=== PATIENT | female | born 1945 | race Caucasian/White ===

== ENCOUNTER → 2017-08-03 19:46 | Outpatient (REF) | payer MEDICARE, OTHER, SELFPAY | LOC: LAB 19:46 | PROVIDERS: Family Provider Family Medicine; PCP Family Medicine; Visit Provider Dermatology | DX: Z48.817 Encounter for surgical aftercare following surgery on the skin and subcutaneous tissue (principal) | CPT/HCPCS: 87070; 87075; 87186; 87205 ==

== ENCOUNTER → 2017-10-12 11:49 | Outpatient (CLI) | payer MEDICARE, OTHER, SELFPAY ==
[2017-10-12 11:58] LABS: Bacteria Urine None Seen; RBC Urine None Seen (0-5/HPF)
[2017-10-12 13:09] LABS: Appearance Urine UA CLEAR; Bilirubin Urine UA NEGATIVE (NEGATIVE); Color Urine UA YELLOW; Glucose Urine UA NEGATIVE (Normal); Ketones Urine UA 1+ (NEGATIVE); Leukocyte Esterase Urine UA NEGATIVE (NEGATIVE); Nitrite Urine UA Negative (Negative); Occult Blood Urine UA NEGATIVE (Negative); Protein Urine UA NEGATIVE (Negative); Urobilinogen Urine UA 0.2 E.U./dL (0.2)
[2017-10-12 13:47] LABS: Culture Indicated Urine Cult Not Indicated; Squamous Epithelial Cell Urine 1-5 /HPF; WBC Urine 0-1/HPF (0-5/HPF)
== END ==
PROVIDERS: PCP Internal Medicine; Visit Provider Internal Medicine
DX: I10 Essential (primary) hypertension (principal)
CPT/HCPCS: 81001

== ENCOUNTER → 2017-10-26 09:13 | Outpatient (CLI) | payer MEDICARE, OTHER, SELFPAY ==
--- NOTE | 2017-10-26 09:14 | DI.ECHO.S_ITS ---
[facility] +---------+ : : [address] [address] : : : : [id number] : : : : Phone: [phone]+ Echocardiogram Report + + :Name: SAMUEL HINTON Study Date: 10/26/2017 Height: 69 in : :[facility] Exam Location: [facility] Weight: 140 lb : : Gender: Female BSA: 1.8 m2 : :: 1945 Age: 72 yrs BP: 128/78 mmHg: :Reason For Study: ABNL EKG : : Performed By: Duane Andres : :Referring: DAJA BEST : + + Interpretation Summary The ejection fraction is estimated to be 60-65%. There is trace mitral regurgitation. There is mild to moderate tricuspid regurgitation. The right ventricular systolic pressure is estimated at 27 mmHg assuming a right atrial pressure of 3 mm Hg. Procedure: A two-dimensional transthoracic echocardiogram with color flow and Doppler was performed. The study quality was technically good. There is no prior echocardiogram noted for this patient. The patient was in normal sinus rhythm during the exam. Left Ventricle: The left ventricle is normal in size. There is normal left ventricular wall thickness. The ejection fraction is estimated to be 60-65%. There are no focal wall motion abnormalities. Right Ventricle: The right ventricle is normal in size and function. Atria: The left atrial size is normal. The right atrium is mildly dilated. The interatrial septum is intact with no evidence for an atrial septal defect. Mitral Valve: The mitral valve is normal in structure and function. There is trace mitral regurgitation. Aortic Valve: The aortic valve is normal in structure and function. The aortic valve is trileaflet. The aortic valve opens well. No aortic regurgitation is present. Tricuspid Valve: The tricuspid valve is normal in structure and function. There is mild to moderate tricuspid regurgitation. The right ventricular systolic pressure is estimated at 27 mmHg assuming a right atrial pressure of 3 mm Hg. Pulmonic Valve: The pulmonic valve is normal in structure and function. There is trace pulmonic regurgitation. Great Vessels: The aortic root is normal size. The ascending aorta is mildly enlarged. The pulmonary artery is normal size. The IVC is of normal diameter and collapses greater than 50% with a sniff. This suggests a low right atrial pressure of 3 mm Hg. Pericardium/ Pleura There is no pericardial effusion. There is no pleural effusion. MMode/2D Measurements & Calculations LVIDd: 4.6 cm Ao root diam: 2.8 cm LVIDs: 2.5 cm Aortic Jxn: 2.6 cm FS: 46.4 % asc Aorta Diam: 3.5 cm EPSS: 0.24 cm Ao Arch Diam (Prox Trans): 2.8 cm IVSd: 0.81 cm LVPWd: 0.72 cm LV rocha. diameter/BSA (cm/m^2): 2.6 LV sys. diameter/BSA (cm/m^2): 1.4 LA dimension: 3.2 cm RA long axis: 4.8 cm LA A2 area: 19.4 cm2 RA area: 18.1 cm2 LA A4 area: 19.8 cm2 RA vol: 58.1 ml LA length (vol): 5.8 cm RA : 32.7 ml/m2 LA vol: 56.4 ml IVC diam: 1.7 cm LA vol index: 31.8 ml/m2 Doppler Measurements & Calculations Ao V2 max: 132.3 cm/sec LVOT Max Gordon: 110.0 cm/sec Ao V2 mean: 98.1 cm/sec LV V1 max P.8 mmHg Ao max P.0 mmHg LV V1 VTI: 25.4 cm Ao mean P.1 mmHg sev ratio: 0.81 Ao V2 VTI: 31.2 cm MV E max gordon: 53.9 cm/sec TR max gordon: 245.8 cm/sec MV A max gordon: 80.4 cm/sec TR max P.2 mmHg MV E/A: 0.67 PA V2 max: 96.3 cm/sec Med Peak E' Gordon: 2.8 cm/sec PA V2 mean: 60.8 cm/sec E/E' med: 19.4 PA mean P.7 mmHg Lat Peak E' Gordon: 4.5 cm/sec PA pr(Accel): 32.4 mmHg E/E' lat: 11.9 PA Accel Time: 0.10 sec E/e' average: 15.6 MV dec time: 0.20 sec Pulm A Revs Gordon: 45.8 cm/sec Reading Physician:05:31 PM
== END ==
PROVIDERS: PCP Internal Medicine; Visit Provider Internal Medicine
DX: I07.1 Rheumatic tricuspid insufficiency (principal); R94.31 Abnormal electrocardiogram [ECG] [EKG]
CPT/HCPCS: 93306

== ENCOUNTER → 2017-11-11 07:34 | Outpatient (CLI) | payer MEDICARE, OTHER, SELFPAY ==
[2017-11-11 09:35] LABS: Alanine Aminotransferase 26 IU/L (9-52); Albumin 4.3 g/dL (3.5-5.0); Albumin Globulin Ratio 1.4 (1.0-2.8); Alkaline Phosphatase 100 U/L (38-126); Aspartate Aminotransferase 34 IU/L (14-36); Bilirubin Total 0.7 mg/dL (0.2-1.3); Blood Urea Nitrogen 18 mg/dL (7-17); Calcium 9.5 mg/dL (8.4-10.2); Carbon Dioxide 32 mmol/L (22-32); Chloride 104 mmol/L (98-107); Cholesterol 250 mg/dL (140-199); Estimated Glomerular Filt Rate 54.7 mL/min (>60); Glucose 79 mg/dL (80-110); HDL Cholesterol 109 mg/dL (40-60); HEMOLYSIS < 15 (0-50); LDL Cholesterol Calculated 127 mg/dL (<100); Potassium 4.2 mmol/L (3.4-5.1); Sodium 144 mmol/L (137-145); Total Protein 7.3 g/dL (6.3-8.2); Triglycerides 72 mg/dL (35-150)
== END ==
PROVIDERS: PCP Internal Medicine; Visit Provider Internal Medicine
DX: E78.00 Pure hypercholesterolemia, unspecified (principal); I10 Essential (primary) hypertension
CPT/HCPCS: 36415; 80053; 80061

== ENCOUNTER → 2018-08-09 07:57 | Outpatient (CLI) | payer MEDICARE, OTHER, SELFPAY ==
[2018-08-09 09:26] LABS: Blood Urea Nitrogen 22 mg/dL (7-17); Calcium 9.7 mg/dL (8.4-10.2); Carbon Dioxide 32 mmol/L (22-32); Chloride 103 mmol/L (98-107); Cholesterol 318 mg/dL (140-199); Estimated Glomerular Filt Rate 54.5 mL/min (>60); Glucose 77 mg/dL (80-110); HEMOLYSIS < 15 (0-50); Potassium 4.5 mmol/L (3.4-5.1); Sodium 141 mmol/L (137-145); Triglycerides 69 mg/dL (35-150)
[2018-08-09 09:33] LABS: HDL Cholesterol 155 mg/dL (40-60); LDL Cholesterol Calculated 149 mg/dL (<100)
[2018-08-11 16:21] LABS: Fecal Immunochemical Test NOT DETECTED (NOT DETECTED)
== END ==
PROVIDERS: Visit Provider Student in an Organized Health Care Education/Training Program
DX: E78.00 Pure hypercholesterolemia, unspecified (principal); I10 Essential (primary) hypertension; Z12.11 Encounter for screening for malignant neoplasm of colon
CPT/HCPCS: 36415; 80048; 80061; 82274

== ENCOUNTER → 2018-08-12 14:45 | Outpatient (CLI) | payer MEDICARE, OTHER, SELFPAY | PROVIDERS: Visit Provider Student in an Organized Health Care Education/Training Program | DX: Z13.820 Encounter for screening for osteoporosis (principal); M85.88 Other specified disorders of bone density and structure, other site; Z78.0 Asymptomatic menopausal state; Z82.62 Family history of osteoporosis | CPT/HCPCS: 77080 ==

== ENCOUNTER → 2019-01-18 07:05 | Outpatient (CLI) | payer MEDICARE, OTHER, SELFPAY ==
[2019-01-18 09:11] LABS: Alanine Aminotransferase 19 IU/L (<35); Albumin 4.4 g/dL (3.5-5.0); Albumin Globulin Ratio 1.5 (1.0-2.8); Alkaline Phosphatase 82 U/L (38-126); Aspartate Aminotransferase 32 IU/L (14-36); Bilirubin Total 0.7 mg/dL (0.2-1.3); Bilirubin Unconjugated 0.6 mg/dL (0.0-1.1); Cholesterol 286 mg/dL (140-199); Total Protein 7.4 g/dL (6.3-8.2); Triglycerides 58 mg/dL (35-150)
[2019-01-18 09:17] LABS: HEMOLYSIS < 15 (0-50)
[2019-01-18 09:18] LABS: HDL Cholesterol 131 mg/dL (40-60); LDL Cholesterol Calculated 143 mg/dL (<100)
== END ==
PROVIDERS: PCP Student in an Organized Health Care Education/Training Program; Visit Provider Student in an Organized Health Care Education/Training Program
DX: E78.00 Pure hypercholesterolemia, unspecified (principal); Z79.899 Other long term (current) drug therapy
CPT/HCPCS: 36415; 80061; 80076

== ENCOUNTER → 2019-07-25 16:39 | Outpatient (CLI) | payer MEDICARE, OTHER, SELFPAY ==
--- NOTE | 2019-07-25 16:40 | DI.MRI.S_ITS ---
PROCEDURE: MR KNEE RT WO CON INDICATIONS: Right knee pain TECHNIQUE: Noncontrast sagittal PD fast spin echo and T2 fast spin echo with fat saturation, sagittal 3-D FLASH with fat saturation; coronal T1 spin echo and PD fast spin echo with fat saturation, and axial PD fast spin echo with fat saturation through the knee. COMPARISON: None. FINDINGS: Image quality: Excellent. Menisci: The medial and lateral menisci demonstrate normal morphology without a discrete tear. There is minimal internal degenerative signal within the medial and lateral menisci. The meniscal root ligaments appear intact. Cruciate ligaments: The anterior and posterior cruciate ligaments appear intact. There is mild periligamentous edema along the ACL proximally as well as mild adjacent edema along the posterior capsule. The findings may represent sequelae of a mild sprain. Medial structures: The medial collateral ligament appears intact. The semimembranosus tendon insertions and meniscocapsular junction appear intact. Visualized portions of the pes anserinus tendons appear intact without associated bursal fluid collections. Lateral structures: The lateral collateral ligament, long and short heads of the biceps femoris tendon appear intact. The popliteus tendon appears intact. Iliotibial band appears normal. Anterior structures: The quadriceps and patellar tendons appear intact. There is slight lateral tilt of the patella. No femoral trochlear dysplasia or ventral trochlear prominence. No edema in the infrapatellar fat pad. Bones and cartilage: No bone marrow contusions or fractures. There is minimal osteophytosis. Moderate cartilage thinning is demonstrated in the patellofemoral compartment with chondral fissuring associated with subchondral edema along the patella involving the medial and lateral facets as well as the median ridge. There is mild superficial chondral fraying in the medial compartment. Joint space: There is physiologic knee joint fluid. There is a small Alfaro's cyst. Normal appearing synovial plicae are incidentally noted. IMPRESSION: 1. Moderate cartilage degeneration in the patellofemoral compartment with subchondral edema along the patella. 2. Mild edema adjacent to the proximal ACL and posterior joint capsule may reflect sequela of a mild sprain. 3. Small Alfaro's cyst. Dictated by: Kendall Vázquez M.D. on 07/26/2019 at 10:02 Approved by: Kendall Vázquez M.D. on 07/26/2019 at 10:10
== END ==
PROVIDERS: PCP Student in an Organized Health Care Education/Training Program; Referring Provider Student in an Organized Health Care Education/Training Program; Visit Provider Student in an Organized Health Care Education/Training Program
DX: M25.561 Pain in right knee (principal); M71.21 Synovial cyst of popliteal space [Baker], right knee
CPT/HCPCS: 73721

== ENCOUNTER → 2019-09-01 11:02 | Outpatient (CLI) | payer MEDICARE, OTHER, SELFPAY ==
--- NOTE | 2019-09-01 11:03 | DI.MG.S_ITS ---
BILATERAL DIGITAL SCREENING MAMMOGRAM 3D/2D WITH CAD: 09/01/2019 CLINICAL: Routine screening. Family history of breast cancer. Comparison is made to exams dated: 05/08/2017 mammogram, 03/28/2016 mammogram, and 03/04/2013 mammogram - [facility]. The tissue of both breasts is extremely dense, which lowers the sensitivity of mammography. Current study was also evaluated with a Computer Aided Detection (CAD) system. There is an asymmetry in the left breast posterior depth central to the nipple seen on the craniocaudal view only. No other significant masses, calcifications, or other findings are seen in either breast. IMPRESSION: INCOMPLETE: NEEDS ADDITIONAL IMAGING EVALUATION The asymmetry in the left breast is indeterminate. Additional views with possible ultrasound are recommended. This exam was interpreted at Station ID: [id number]. NOTE: For mammograms, a report in lay terms will be sent to the patient. Approximately 15% of breast malignancies will not be visualized mammographically. In the management of a palpable breast mass, a negative mammogram must not discourage biopsy of a clinically suspicious lesion. Electronically Signed By: Sandrine sparrow/cristian:09/01/2019 11:35:37 letter sent: Additional Imaging Needed ACR BI-RADS Category 0: Incomplete 3340F
== END ==
PROVIDERS: PCP Student in an Organized Health Care Education/Training Program; Referring Provider Student in an Organized Health Care Education/Training Program; Visit Provider Student in an Organized Health Care Education/Training Program
DX: Z12.31 Encounter for screening mammogram for malignant neoplasm of breast (principal); Z80.3 Family history of malignant neoplasm of breast
CPT/HCPCS: 77063; 77067

== ENCOUNTER → 2019-09-20 15:01 | Outpatient (CLI) | payer MEDICARE, OTHER, SELFPAY ==
--- NOTE | 2019-09-20 15:03 | DI.MG.S_ITS ---
UNILATERAL LEFT DIGITAL DIAGNOSTIC MAMMOGRAM 3D/2D WITH ADDITIONAL VIEWS: 09/20/2019 CLINICAL: Additional evaluation requested from prior study. Comparison is made to exams dated: 09/01/2019 mammogram, 05/08/2017 mammogram, and 03/28/2016 mammogram - [facility]. The tissue of left breast is extremely dense, which lowers the sensitivity of mammography. The previously seen asymmetry in the left breast seen on craniocaudal view only is no longer visualized and presumably represents normal superimposed breast tissue. No significant masses, calcifications, or other findings are seen in the breast. IMPRESSION: NEGATIVE There is no mammographic evidence of malignancy. A 1 year screening mammogram is recommended. This exam was interpreted at Station ID: [id number]. NOTE: For mammograms, a report in lay terms will be sent to the patient. Approximately 15% of breast malignancies will not be visualized mammographically. In the management of a palpable breast mass, a negative mammogram must not discourage biopsy of a clinically suspicious lesion. Electronically Signed By: Amrit burch/cristian:09/20/2019 15:57:50 letter sent: Normal Exam ACR BI-RADS Category 1: Negative 3341F
== END ==
PROVIDERS: PCP Student in an Organized Health Care Education/Training Program; Referring Provider Student in an Organized Health Care Education/Training Program; Visit Provider Student in an Organized Health Care Education/Training Program
DX: R92.8 Other abnormal and inconclusive findings on diagnostic imaging of breast (principal)
CPT/HCPCS: 77065; G0279

== ENCOUNTER → 2020-06-13 10:01 | Outpatient (CLI) | payer MEDICARE, OTHER, SELFPAY ==
[2020-06-13 10:45] LABS: BUN Creatinine Ratio 16.3 (6-22); Blood Urea Nitrogen 16 mg/dL (7-17); Calcium 9.7 mg/dL (8.4-10.2); Carbon Dioxide 28 mmol/L (22-32); Chloride 103 mmol/L (98-107); Estimated Glomerular Filt Rate 55.5 mL/min (>60); Glucose 83 mg/dL (80-110); HEMOLYSIS < 15 (0-50); Potassium 4.4 mmol/L (3.4-5.1); Sodium 137 mmol/L (137-145)
== END ==
PROVIDERS: PCP Student in an Organized Health Care Education/Training Program; Referring Provider Student in an Organized Health Care Education/Training Program; Visit Provider Student in an Organized Health Care Education/Training Program
DX: I10 Essential (primary) hypertension (principal)
CPT/HCPCS: 36415; 80048

== ENCOUNTER → 2020-06-20 08:11 | Outpatient (CLI) | payer MEDICARE, OTHER, SELFPAY ==
--- NOTE | 2020-06-20 08:12 | DI.RAD.S_ITS ---
PROCEDURE: FL BARIUM SWALLOW W SPEECH INDICATIONS: Dysphagia with solids COMPARISON: None. TECHNIQUE: Examination was conducted in conjunction with speech pathology per standard protocol. In the lateral projection, filming was performed of the patient swallowing. AP projection filming may also be performed with patient swallowing. COMPARISON: FINDINGS: Function: The oral preparatory phase appears normal, with proper containment. The subsequent oral propulsive phase, pharyngeal phase, and esophageal phase of swallowing also appear normal with all proffered substances. No laryngotracheal penetration or aspiration. No pathologic vallecular pooling. Morphology: No cricopharyngeal bar is identified. No cervical esophageal webs. Large Zenker's diverticulum is noted. No strictures. IMPRESSION: Large Zenker's diverticulum. Dictated by: Mika Villatoro M.D. on 06/20/2020 at 10:54 Approved by: Mika Villatoro M.D. on 06/20/2020 at 10:55
--- NOTE | 2020-06-20 10:15 | ST.SWALLOW ---
Visit Care Team Role Provider Type Pawan Pena MD Attending Provider Physician Primary Care Provider Referring Provider Specialty: Internal Medicine Address: [address] [place] [address], [address], [address] Email: [email or web address] Modified Barium Swallow Study DIRECTOR [employer] Modified Barium Swallow Study Start: 06/20/20 09:27 Freq: Status: Active Protocol: Document 06/20/20 09:27 TLC (Rec: 06/20/20 10:15 TLC [id number]) Modified Barium Swallow Study Total Time Visit Start Time 08:30 Visit Stop Time 08:45 Total Visit Minutes [address] Pawan Pena Reason for Referral Globus sensation, Dysphagia with solids Setting Setting Outpatient Care Patient Information Identification Type Name Patient History Patient reports symptoms of globus sensation with solid foods and pills for the last several months. She is concerned about an esophageal stricture which her brother has. Subjective Observations Patient was alert, oriented and cooperative during the study. Patient Positioning Position View Lateral Imaging Lateral View Textures Administered Trials Presented Thin Liquid via Spoon,Thin Liquid via Cup,[place] Liquid via Spoon,[place] Liquid via Cup,Honey Liquid via Spoon, Pudding Thick Liquid via Spoon ,Regular Textures Oral Phase Source: MBSIMP (TM) (C) Bolus Specific Scoring Grid Lip Closure No Impairment (WNL) Tongue Control During Bolus Hold No Impairment (WNL) Bolus Prep/Mastication No Impairment (WNL) Bolus Transport/Lingual Motion No Impairment (WNL) Oral Residue No Impairment (WNL) Additional Oral Phase Observations No oral phase dysphagia observed. Pharyngeal Phase Source: MBSIMP (TM) (C) Bolus Specific Scoring Grid Soft Palate Elevation No Impairment (WNL) Laryngeal Elevation No Impairment (WNL) Anterior Hyoid Movement No Impairment (WNL) Epiglottic Range of Motion No Impairment (WNL) Laryngeal Vestibular Closure No Impairment (WNL) Pharyngeal Stripping Wave No Impairment (WNL) Upper Esophageal Sphincter Opening Mild Impairment Additional Pharyngeal Phase Observations There is adequate distension of the pharyngoesophageal segment but with early collapse allowing most of the bolus to pass. A collection of pharyngeal residue was present in the pyriform sinus and a trace amount in the valleculae. A cricopharyngeal bar with Zenker's diverticulum was noted resulting in residual barium in diverticulum which worsened with thicker consistencies. Multiple dry swallows and sips of water did not clear residue in pouch. No penetration or aspiration observed during the study, consistent with a Penetration Aspiration Scale Score of 1. A/P View Esophageal Observations Esophageal Function Collection of food/liquid in Zenker's diverticulum as noted above which did not clear throughout study. Clinical Impressions Dysphagia Type Pharyngoesophageal Findings Patient's globus sensation is related to Zenker's diverticulum. Additional dry swallows and sips of water were only minimally successful at clearing residue. Patient is at increased risk for aspiration of refluxed material, but no aspiration was observed during the study. The following strategies are recommended: small bites/sips, additional dry swallows, oral hygiene, avoid dry,rough textures and pills. Patient was instructed to follow up with her PCP to discuss further treatment options. Patient Appropriate for Therapy No Recommendations Diet Liquids Order Thin Diet Order Dysphagia Advanced Medication Recommendation Crushed Additional Dietary Needs Single Sips Aspiration Precautions Recommended Precautions Small Bites/Sips Treatment Plan Recommended Referrals Primary Care Physician
== END ==
PROVIDERS: PCP Student in an Organized Health Care Education/Training Program; Referring Provider Student in an Organized Health Care Education/Training Program; Visit Provider Student in an Organized Health Care Education/Training Program
DX: R13.10 Dysphagia, unspecified (principal); K22.5 Diverticulum of esophagus, acquired
CPT/HCPCS: 74230; 92611

== ENCOUNTER → 2020-11-09 11:09 | Outpatient (CLI) | payer MEDICARE, OTHER, SELFPAY ==
--- NOTE | 2020-11-09 | DI.MG.S_ITS ---
BILATERAL DIGITAL SCREENING MAMMOGRAM 3D/2D WITH CAD: 11/09/2020 CLINICAL: Routine screening. Family history of breast cancer. Comparison is made to exams dated: 09/20/2019 mammogram, 09/01/2019 mammogram, and 05/08/2017 mammogram - [facility]. The tissue of both breasts is heterogeneously dense. This may lower the sensitivity of mammography. Current study was also evaluated with a Computer Aided Detection (CAD) system. No significant masses, calcifications, or other findings are seen in either breast. There has been no significant interval change. IMPRESSION: NEGATIVE There is no mammographic evidence of malignancy. A 1 year screening mammogram is recommended. This exam was interpreted at Station ID: [id number]. NOTE: For mammograms, a report in lay terms will be sent to the patient. Approximately 15% of breast malignancies will not be visualized mammographically. In the management of a palpable breast mass, a negative mammogram must not discourage biopsy of a clinically suspicious lesion. Electronically Signed By: Zayra braden/cristian:11/09/2020 12:29:09 letter sent: Normal Exam ACR BI-RADS Category 1: Negative 3341F
== END ==
PROVIDERS: PCP Student in an Organized Health Care Education/Training Program; Referring Provider Student in an Organized Health Care Education/Training Program; Visit Provider Student in an Organized Health Care Education/Training Program
DX: Z12.31 Encounter for screening mammogram for malignant neoplasm of breast (principal); Z80.3 Family history of malignant neoplasm of breast
CPT/HCPCS: 77063; 77067

== ENCOUNTER → 2021-05-27 09:47 | Outpatient (CLI) | payer MEDICARE, OTHER, SELFPAY ==
--- NOTE | 2021-05-27 09:49 | DI.RAD.S_ITS ---
PROCEDURE: FL BARIUM SWALLOW INDICATIONS: Re-eval know Zenker divertic prior to surgery COMPARISON: [facility], , [place] BARIUM SWALLOW W SPEECH, 06/20/2020, 8:35. FINDINGS: Function: There is diminished peristaltic esophageal stripping with tertiary contractions. Morphology: Upper esophageal diverticulum measures 3.3 x 1.6 cm. This is similar in size to this often g 06/20/2020. No stricture or mass effect. No obvious hiatal hernia. IMPRESSION: Zenker's diverticulum measuring 3.3 cm is similar in size. Diminished peristaltic esophageal stripping with tertiary contractions consistent with presbyesophagus. Of note the esophageal dysmotility may also be contributing to the patient's symptoms. Dictated by: Vikas Hightower M.D. on 05/27/2021 at 13:33 Approved by: Vikas Hightower M.D. on 05/27/2021 at 13:37
== END ==
PROVIDERS: PCP Student in an Organized Health Care Education/Training Program; Referring Provider Student in an Organized Health Care Education/Training Program; Visit Provider Student in an Organized Health Care Education/Training Program
DX: K22.5 Diverticulum of esophagus, acquired (principal)
CPT/HCPCS: 74220

== ENCOUNTER → 2021-05-27 13:47 | Outpatient (CLI) | payer MEDICARE, OTHER, SELFPAY ==
[2021-05-27 15:30] LABS: COVID-19 CEPHEID PCR (VTM/NP) Negative (Negative)
== END ==
PROVIDERS: PCP Student in an Organized Health Care Education/Training Program; Referring Provider Family Medicine Sleep Medicine; Visit Provider Family Medicine Sleep Medicine
DX: Z20.822 Contact with and (suspected) exposure to COVID-19 (principal); K22.5 Diverticulum of esophagus, acquired
CPT/HCPCS: 74220; C9803; U0003; U0005

== ENCOUNTER → 2021-08-12 14:35 | Outpatient (CLI) | payer MEDICARE, OTHER, SELFPAY ==
[2021-08-12 15:31] LABS: BUN Creatinine Ratio 16.5 (6-22); Blood Urea Nitrogen 17 mg/dL (7-17); Calcium 9.2 mg/dL (8.4-10.2); Carbon Dioxide 30 mmol/L (22-32); Chloride 103 mmol/L (98-107); Estimated Glomerular Filt Rate 57 mL/min (>60); Glucose 121 mg/dL (80-110); HEMOLYSIS < 15 (0-50); Potassium 4.3 mmol/L (3.4-5.1); Sodium 138 mmol/L (137-145)
[2021-08-12 20:32] LABS: Vitamin D 25 Hydroxy (D3) 44.6 ng/mL (30.0-100.0)
== END ==
PROVIDERS: PCP Student in an Organized Health Care Education/Training Program; Referring Provider Student in an Organized Health Care Education/Training Program; Visit Provider Student in an Organized Health Care Education/Training Program
DX: E55.9 Vitamin D deficiency, unspecified (principal); I10 Essential (primary) hypertension
CPT/HCPCS: 36415; 80048; 82306

== ENCOUNTER → 2021-08-13 15:34 | Outpatient (CLI) | payer MEDICARE, OTHER, SELFPAY ==
[2021-08-16 14:42] LABS: Fecal Immunochemical Test Negative (Negative)
== END ==
PROVIDERS: PCP Student in an Organized Health Care Education/Training Program; Referring Provider Student in an Organized Health Care Education/Training Program; Visit Provider Student in an Organized Health Care Education/Training Program
DX: Z12.11 Encounter for screening for malignant neoplasm of colon (principal)
CPT/HCPCS: 82274

== ENCOUNTER → 2021-08-23 10:01 | Outpatient (CLI) | payer MEDICARE, OTHER, SELFPAY | PROVIDERS: Family Provider Student in an Organized Health Care Education/Training Program; PCP Student in an Organized Health Care Education/Training Program; Referring Provider Student in an Organized Health Care Education/Training Program; Visit Provider Student in an Organized Health Care Education/Training Program | DX: M85.89 Other specified disorders of bone density and structure, multiple sites (principal); Z78.0 Asymptomatic menopausal state | CPT/HCPCS: 77080 ==

== ENCOUNTER 2021-09-10 09:00 | Outpatient (RCR) | payer MEDICARE, OTHER, SELFPAY ==
--- NOTE | 2021-08-29 13:34 | PT.OIE ---
Current Diagnoses Urgency of urination (08/29/21) Past Surgical History (Last Updated 10/09/17 @ 16:02 by Paola Nix) History of eyelid surgery Visit Care Team Role Provider Type Pawan Pena MD Attending Provider Physician Family Provider Primary Care Provider Referring Provider Specialty: Internal Medicine Address: [address] [place] [address], [address], [address] Email: [email or web address] Physical Therapy Initial Evaluation PT-OP-A Visit Information Start: 08/28/21 21:15 Freq: Status: Active Protocol: Document 08/29/21 10:31 AMB (Rec: 08/29/21 11:14 AMB [id number]) Out-Patient Physical Therapy Visit Information Visit Information Visit Type Initial Evaluation Visit Start Time 10:30 Visit Stop Time 11:15 Total Visit Minutes 45 Visit Number 1 PT-OP-B Current Condition Start: 08/28/21 21:15 Freq: Status: Active Protocol: Document 08/29/21 10:31 AMB (Rec: 08/29/21 11:14 AMB [id number]) Current Condition History of Current Condition Onset Date 6 years Current Complaints Urinary urgency incontinence History of Current Condition Urgency in the morning. Getting up at night 2-3x/night . Does report yellow urine, darker than it should be. Maybe getting a little worse. Does have a little urge incontinence at times. No stress urinary incontinence. Intermittent constipation. No live births. No heaviness. Does feel like it takes her a long time to void urine. Treatment Goals Patient/Caregiver Goals Reduce urgency/urge incontinence Personal Factors Other Personal Factors That May Effect hypertension Therapy/Recovery PT-OP-C Subjective Start: 08/28/21 21:15 Freq: Status: Active Protocol: Document 08/29/21 13:21 AMB (Rec: 08/29/21 13:34 AMB [id number]) Patient Questionnaires Pelvic Pain and Urgency/Frequency Patient Symptom Scale Pelvic Pain Score 11 PT-OP-I Pelvic Floor Start: 08/28/21 21:15 Freq: Status: Active Protocol: Document 08/29/21 13:21 AMB (Rec: 08/29/21 13:34 AMB [id number]) Pelvic Floor Assessment Urine Pelvic Floor Surgery No Urinary Symptoms Urge Sensation Leakage Size Small Leakage Cause Urge Leaks Per Day 1 Voiding Frequency 2-3 hours Nocturia 2 Urine Pad Type Panty Liner Bowel Bowel Surgery No Bowel Symptoms Constipation Pelvic Clock Pelvic Clock 12-3 Atrophy Pelvic Clock 3-6 Atrophy Pelvic Clock 6-9 Atrophy Pelvic Clock 9-12 Atrophy Prolapse Prolapse Comments No visible prolapse with valsalva Contraction Ability Voluntary Contraction Moderate Voluntary Relaxation Moderate Manual Muscle Testing Left 3 Manual Muscle Testing Right 3 Manual Muscle Testing Anterior 3 Manual Muscle Testing Posterior 3 Muscle Endurance (Seconds) 4 Number of Quick Contractions In 10 3 Seconds Comments Pelvic Floor Comments cued levator lift PT-OP-T Assessment and Plan Start: 08/28/21 21:15 Freq: Status: Active Protocol: Document 08/29/21 13:21 AMB (Rec: 08/29/21 13:34 AMB [id number]) Physical Therapy Assessment Evaluation Complexity Number of Personal Factors/Comorbidities 1-2 Number of Body Systems Impaired 1-2 Clinical Presentation at Evaluation Stable Impairments Impairments Functional Activities,Strength Goals Continence Short Term Goal (STG) Sharmin will walk slowly to the toilet without urgency. STG Duration 4 weeks Label Stitcher Goal (LTG) Sharmin will avoid urge urinary incontinence. LTG Duration 6 weeks Pelvic floor strength Short Term Goal (STG) Sharmin will contract her pelvic floor 5x in standing to reduce her urgency. STG Duration 4 weeks Assessment Summary Assessment Sharmin attends with urinary urgency and some history of urge incontinence. No stress urinary incontinence. Counseled in regards to fluid consumption and coffee. Pelvic floor strength was 3/5 with needed cues for levator ani. Instructed in urge reduction techniques. Pt with good understanding. Will benefit from continued PT to progress pelvic floor strengthening and any other urge reduction techniques that she finds helpful. Physical Therapy Plan Frequency and Duration Frequency of Treatment 1x/Week Duration of Treatment 6 weeks Plan of Care Start Date 08/29/21 Plan of Care End Date 10/13/21 Therapeutic Interventions Therapeutic Interventions Home Exercise Program,Manual Therapy,Neuromuscular Re- education,Self-Care/Home Management,Therapeutic Activities,Therapeutic Exercises Modalities Biofeedback,Electric Stimulation Next Visit Focus/Plan Next Note Type Treatment Note Next Visit Plan Review urge suppression technique as needed
--- NOTE | 2021-08-29 13:35 | PT.OPPOC ---
Physical, Occupational & Speech Therapy At [facility] Current Diagnoses Urgency of urination (08/29/21) Visit Care Team Role Provider Type Pawan Pena MD Attending Provider Physician Family Provider Primary Care Provider Referring Provider Specialty: Internal Medicine Address: [address] [place] [address], [facility] [address], [place], [address] Email: [email or web address] Plan Of Care PT-OP-T Assessment and Plan Start: 08/28/21 21:15 Freq: Status: Active Protocol: Document 08/29/21 13:21 AMB (Rec: 08/29/21 13:34 AMB [id number]) Physical Therapy Assessment Evaluation Complexity Number of Personal Factors/Comorbidities 1-2 Number of Body Systems Impaired 1-2 Clinical Presentation at Evaluation Stable Impairments Impairments Functional Activities,Strength Goals Continence Short Term Goal (STG) Sharmin will walk slowly to the toilet without urgency. STG Duration 4 weeks Quencher Operator Goal (LTG) Sharmin will avoid urge urinary incontinence. LTG Duration 6 weeks Pelvic floor strength Short Term Goal (STG) Sharmin will contract her pelvic floor 5x in standing to reduce her urgency. STG Duration 4 weeks Assessment Summary Assessment Sharmin attends with urinary urgency and some history of urge incontinence. No stress urinary incontinence. Counseled in regards to fluid consumption and coffee. Pelvic floor strength was 3/5 with needed cues for levator ani. Instructed in urge reduction techniques. Pt with good understanding. Will benefit from continued PT to progress pelvic floor strengthening and any other urge reduction techniques that she finds helpful. Physical Therapy Plan Frequency and Duration Frequency of Treatment 1x/Week Duration of Treatment 6 weeks Plan of Care Start Date 08/29/21 Plan of Care End Date 10/13/21 Therapeutic Interventions Therapeutic Interventions Home Exercise Program,Manual Therapy,Neuromuscular Re- education,Self-Care/Home Management,Therapeutic Activities,Therapeutic Exercises Modalities Biofeedback,Electric Stimulation Next Visit Focus/Plan Next Note Type Treatment Note Next Visit Plan Review urge suppression technique as needed Plan of Care Dates Plan of Care Start Date 08/29/21 Plan of Care End Date 10/13/21 Electronically Signed by: Reyna Mo, PT 08/29/21 [id number] If you are in agreement with this Plan of Care, please return a signed and dated copy. I have reviewed this Plan of Care and certify that the skilled therapy services above are required to meet the patient?s needs. Physician Signature Date Printed Name and Credentials Clinical Instructor Signature Printed Name and Credentials
--- NOTE | 2021-09-10 12:44 | PT.OTN ---
Current Diagnoses Urgency of urination (09/10/21) Physical Therapy Treatment Note PT-OP-A Visit Information Start: 08/28/21 21:15 Freq: Status: Active Protocol: Document 09/10/21 09:07 AMB (Rec: 09/10/21 09:47 AMB [id number]) Out-Patient Physical Therapy Visit Information Visit Information Visit Type Treatment Note Visit Start Time 09:00 Visit Stop Time 09:30 Total Visit Minutes 30 Visit Number 2 PT-OP-B Current Condition Start: 08/28/21 21:15 Freq: Status: Active Protocol: Document 08/29/21 10:31 AMB (Rec: 08/29/21 11:14 AMB [id number]) Current Condition History of Current Condition Onset Date 6 years Current Complaints Urinary urgency incontinence History of Current Condition Urgency in the morning. Getting up at night 2-3x/night . Does report yellow urine, darker than it should be. Maybe getting a little worse. Does have a little urge incontinence at times. No stress urinary incontinence. Intermittent constipation. No live births. No heaviness. Does feel like it takes her a long time to void urine. Treatment Goals Patient/Caregiver Goals Reduce urgency/urge incontinence Personal Factors Other Personal Factors That May Effect hypertension Therapy/Recovery PT-OP-C Subjective Start: 08/28/21 21:15 Freq: Status: Active Protocol: Document 09/10/21 09:07 AMB (Rec: 09/10/21 09:47 AMB [id number]) OP-PT Subjective Patient Comments Patient Comments Sharmin feels like sx are pretty much better at this point. PT-OP-I Pelvic Floor Start: 08/28/21 21:15 Freq: Status: Active Protocol: Document 08/29/21 13:21 AMB (Rec: 08/29/21 13:34 AMB [id number]) Pelvic Floor Assessment Urine Pelvic Floor Surgery No Urinary Symptoms Urge Sensation Leakage Size Small Leakage Cause Urge Leaks Per Day 1 Voiding Frequency 2-3 hours Nocturia 2 Urine Pad Type Panty Liner Bowel Bowel Surgery No Bowel Symptoms Constipation Pelvic Clock Pelvic Clock 12-3 Atrophy Pelvic Clock 3-6 Atrophy Pelvic Clock 6-9 Atrophy Pelvic Clock 9-12 Atrophy Prolapse Prolapse Comments No visible prolapse with valsalva Contraction Ability Voluntary Contraction Moderate Voluntary Relaxation Moderate Manual Muscle Testing Left 3 Manual Muscle Testing Right 3 Manual Muscle Testing Anterior 3 Manual Muscle Testing Posterior 3 Muscle Endurance (Seconds) 4 Number of Quick Contractions In 10 3 Seconds Comments Pelvic Floor Comments cued levator lift PT-OP-Q Treatments Start: 08/28/21 21:15 Freq: Status: Active Protocol: Document 09/10/21 09:00 AMB (Rec: 09/10/21 12:42 AMB [id number]) Therapeutic Exercises Sitting Exercises quick flicks long holds Comments discussed katherine with pilates Self-Care/Home Management Treatment Education Other Education ball against pelvic floor if pelvic floor gets tight PT-OP-T Assessment and Plan Start: 08/28/21 21:15 Freq: Status: Active Protocol: Document 09/10/21 09:07 AMB (Rec: 09/10/21 09:47 AMB [id number]) Physical Therapy Assessment Goals Continence Short Term Goal (STG) Sharmin will walk slowly to the toilet without urgency. STG Duration MET Faculty Neuropsychologist Goal (LTG) Sharmin will avoid urge urinary incontinence. LTG Duration MET Pelvic floor strength Short Term Goal (STG) Sharmin will contract her pelvic floor 5x in standing to reduce her urgency. STG Duration MET Assessment Summary Assessment Sharmin reports she has decreased her nocturia from 3x /night to 1x/night. She can now control her bladder so that she does not run to the bathroom and can calmly walk to the bathroom. She is therefore discharged from PT for meeting all of her goals. Physical Therapy Plan Next Visit Focus/Plan Next Note Type Treatment Note Next Visit Plan Review urge suppression technique as needed
== END 2021-09-11 13:58 | disposition home or self-care (01) ==
LOC: PHYS 09:00
PROVIDERS: Family Provider Student in an Organized Health Care Education/Training Program; PCP Student in an Organized Health Care Education/Training Program; Referring Provider Student in an Organized Health Care Education/Training Program; Visit Provider Student in an Organized Health Care Education/Training Program
DX: R39.15 Urgency of urination (principal)
CPT/HCPCS: 97110; 97161; 97535

== ENCOUNTER → 2022-03-31 12:17 | Outpatient (CLI) | payer MEDICARE, OTHER, SELFPAY ==
--- NOTE | 2022-03-31 12:18 | DI.RAD.S_ITS ---
PROCEDURE: XR KNEE RT 3V INDICATIONS: evaluate right knee pain TECHNIQUE: 3 views of the knee were acquired. COMPARISON: None. FINDINGS: Bones: No fractures or dislocations. No suspicious bony lesions. Mild tricompartmental knee joint space narrowing with minimal periarticular osteophyte formation. Soft tissues: Small joint effusion. No suspicious soft tissue calcifications. IMPRESSION: 1. Small knee joint effusion and mild tricompartmental knee joint degeneration. Dictated by: Gurwinder Rico [facility] Interpreted: Amrit Andrea MD on 03/31/2022 at 12:51 Transcribed by: SABINA on 03/31/2022 at 12:52 Approved by: Amrit Andrea M.D. on 03/31/2022 at 21:15
== END ==
PROVIDERS: Family Provider Student in an Organized Health Care Education/Training Program; PCP Student in an Organized Health Care Education/Training Program; Referring Provider Student in an Organized Health Care Education/Training Program; Visit Provider Student in an Organized Health Care Education/Training Program
DX: M17.11 Unilateral primary osteoarthritis, right knee (principal); M25.461 Effusion, right knee; M25.561 Pain in right knee
CPT/HCPCS: 73562

== ENCOUNTER → 2022-05-09 15:41 | Outpatient (CLI) | payer MEDICARE, OTHER, SELFPAY ==
--- NOTE | 2022-05-09 | DI.MG.S_ITS ---
BILATERAL DIGITAL SCREENING MAMMOGRAM 3D/2D WITH CAD: 05/09/2022 CLINICAL: Routine screening. Family history of breast cancer. Comparison is made to exams dated: 11/09/2020 mammogram, 09/01/2019 mammogram, 05/08/2017 mammogram, and 03/28/2016 mammogram - [facility]. Both breasts are heterogeneously dense, which may obscure small masses (category c / 51-75% glandular tissue). Current study was also evaluated with a Computer Aided Detection (CAD) system. No significant masses, calcifications, or other findings are seen in either breast. There has been no significant interval change. IMPRESSION: NEGATIVE There is no mammographic evidence of malignancy. A 1 year screening mammogram is recommended. Based on the Tyrer Cuzick model (a risk assessment model) the patient's lifetime risk is 9.6% and her 10 year risk is 0.0%. According to the ACR, ACS, and NCCN guidelines, an annual breast MRI exam along with mammogram is recommended if the patient's lifetime risk is 20% or greater. This exam was interpreted at Station ID: [id number]. NOTE: For mammograms, a report in lay terms will be sent to the patient. Approximately 15% of breast malignancies will not be visualized mammographically. In the management of a palpable breast mass, a negative mammogram must not discourage biopsy of a clinically suspicious lesion. Electronically Signed By: Zayra braden/cristian:05/09/2022 17:59:59 letter sent: Normal Exam ACR BI-RADS Category 1: Negative 3341F
== END ==
PROVIDERS: Family Provider Student in an Organized Health Care Education/Training Program; PCP Student in an Organized Health Care Education/Training Program; Referring Provider Student in an Organized Health Care Education/Training Program; Visit Provider Student in an Organized Health Care Education/Training Program
DX: Z12.31 Encounter for screening mammogram for malignant neoplasm of breast (principal)
CPT/HCPCS: 77063; 77067

== ENCOUNTER → 2022-08-25 09:27 | Outpatient (CLI) | payer MEDICARE, OTHER, SELFPAY ==
[2022-08-25 11:38] LABS: Cholesterol 282 mg/dL (140-199); Triglycerides 111 mg/dL (35-150)
[2022-08-25 11:45] LABS: HDL Cholesterol 142 mg/dL (40-60); LDL Cholesterol Calculated 118 mg/dL (<100)
[2022-08-26 19:41] LABS: Fecal Immunochemical Test Negative (Negative)
== END ==
PROVIDERS: Family Provider Student in an Organized Health Care Education/Training Program; PCP Pediatrics; Referring Provider Pediatrics; Visit Provider Pediatrics
DX: Z86.39 Personal history of other endocrine, nutritional and metabolic disease (principal); Z12.11 Encounter for screening for malignant neoplasm of colon
CPT/HCPCS: 36415; 80061; 82274

== ENCOUNTER → 2022-10-17 08:31 | Outpatient (CLI) | payer MEDICARE, OTHER, SELFPAY ==
[2022-10-17 10:24] LABS: Add Manual Diff / Slide Review NO; Basophils Absolute Auto 100 /uL (0-100); Basophils Percent Auto 2.1 % (0-2); Eosinophils Absolute Auto 200 /uL (0-450); Eosinophils Percent Auto 4.5 % (2-4); Hemoglobin 14.6 g/dL (12.0-16.0); Lymphocytes Absolute Auto 1200 /uL (1100-4500); Lymphocytes Percent Auto 29.9 % (25-40); Mean Corpuscular HGB Conc 34.6 % (30-36); Mean Corpuscular Hemoglobin 33.4 PG (26-34); Mean Corpuscular Volume 96.3 fL (80-100); Monocytes Absolute Auto 300 /uL (0-900); Monocytes Percent Auto 6.4 % (3-14); Neutrophils Absolute Auto 2300 /uL (1500-7000); Neutrophils Percent Auto 57.1 % (50-75); Platelet Count 187 X10^3/uL (150-400); Red Blood Cell Count 4.36 X10^6/uL (4.0-5.2); Red Cell Distribution Width 13.7 % (11.6-14.8)
[2022-10-17 10:53] LABS: Alanine Aminotransferase 19 IU/L (<35); Albumin 4.1 g/dL (3.5-5.0); Albumin Globulin Ratio 1.5 (1.0-2.8); Alkaline Phosphatase 71 U/L (38-126); Aspartate Aminotransferase 30 IU/L (14-36); BUN Creatinine Ratio 13.3 (6-22); Blood Urea Nitrogen 15 mg/dL (7-17); Calcium 8.9 mg/dL (8.4-10.2); Carbon Dioxide 28 mmol/L (22-32); Chloride 103 mmol/L (98-107); Cholesterol 256 mg/dL (140-199); Estimated Glomerular Filt Rate 50 mL/min (>60); Globulin 2.8 g/dL (1.7-4.1); Glucose 80 mg/dL (80-110); HEMOLYSIS < 15 (0-50); Potassium 4.3 mmol/L (3.4-5.1); Sodium 139 mmol/L (137-145); Total Protein 6.9 g/dL (6.3-8.2); Triglycerides 64 mg/dL (35-150)
[2022-10-17 11:03] LABS: HDL Cholesterol 129 mg/dL (40-60); LDL Cholesterol Calculated 114 mg/dL (<100)
[2022-10-17 11:37] LABS: Appearance Urine UA CLEAR; Bilirubin Urine UA 1+ (NEGATIVE); Color Urine UA YELLOW; Glucose Urine UA NEGATIVE (Negative); Ketones Urine UA TRACE (NEGATIVE); Leukocyte Esterase Urine UA NEGATIVE (NEGATIVE); Nitrite Urine UA NEGATIVE (Negative); Occult Blood Urine UA NEGATIVE (Negative); Protein Urine UA TRACE (Negative); Specific Gravity Urine UA 1.025 (1.000-1.035)
[2022-10-17 11:38] LABS: pH Urine UA 5.5 (4.5-8.0)
[2022-10-17 12:02] LABS: Ictotest Urine Negative (Negative)
== END ==
PROVIDERS: Family Provider Student in an Organized Health Care Education/Training Program; PCP Pediatrics; Referring Provider Pediatrics; Visit Provider Pediatrics
DX: E78.00 Pure hypercholesterolemia, unspecified (principal); I10 Essential (primary) hypertension; R39.15 Urgency of urination
CPT/HCPCS: 36415; 80053; 80061; 81003; 84443; 85025

== ENCOUNTER → 2022-11-18 07:41 | Outpatient (CLI) | payer MEDICARE, OTHER, SELFPAY ==
[2022-11-18 08:34] LABS: BUN Creatinine Ratio 15.6 (6-22); Blood Urea Nitrogen 15 mg/dL (7-17); Calcium 9.5 mg/dL (8.4-10.2); Carbon Dioxide 27 mmol/L (22-32); Chloride 104 mmol/L (98-107); Cholesterol 291 mg/dL (140-199); Estimated Glomerular Filt Rate > 60 mL/min (>60); Glucose 85 mg/dL (80-110); HEMOLYSIS < 15 (0-50); Sodium 137 mmol/L (137-145); Triglycerides 65 mg/dL (35-150)
[2022-11-18 08:45] LABS: HDL Cholesterol 162 mg/dL (40-60); LDL Cholesterol Calculated 116 mg/dL (<100)
== END ==
PROVIDERS: Family Provider Student in an Organized Health Care Education/Training Program; PCP Pediatrics; Referring Provider Pediatrics; Visit Provider Pediatrics
DX: E78.00 Pure hypercholesterolemia, unspecified (principal); I10 Essential (primary) hypertension; R79.89 Other specified abnormal findings of blood chemistry
CPT/HCPCS: 36415; 80048; 80061

== ENCOUNTER → 2023-06-17 14:55 | Outpatient (CLI) | payer MEDICARE, OTHER, SELFPAY ==
--- NOTE | 2023-06-17 14:57 | DI.MG.S_ITS ---
BILATERAL DIGITAL SCREENING MAMMOGRAM 3D/2D WITH CAD: 06/17/2023 CLINICAL: Routine screening. Family history of breast cancer. Comparison is made to exams dated: 05/09/2022 mammogram, 11/09/2020 mammogram, and 09/01/2019 mammogram - [facility]. Both breasts are heterogeneously dense, which may obscure small masses (category c / 51-75% glandular tissue). Current study was also evaluated with a Computer Aided Detection (CAD) system. No significant masses, calcifications, or other findings are seen in either breast. There has been no significant interval change. IMPRESSION: NEGATIVE There is no mammographic evidence of malignancy. A 1 year screening mammogram is recommended. Based on the Tyrer Cuzick model (a risk assessment model) the patient's lifetime risk is 8.7% and her 10 year risk is 0.0%. According to the ACR, ACS, and NCCN guidelines, an annual breast MRI exam along with mammogram is recommended if the patient's lifetime risk is 20% or greater. This exam was interpreted at Station ID: [id number]. NOTE: For mammograms, a report in lay terms will be sent to the patient. Approximately 15% of breast malignancies will not be visualized mammographically. In the management of a palpable breast mass, a negative mammogram must not discourage biopsy of a clinically suspicious lesion. Electronically Signed By: Sandrine sparrow/cristian:06/17/2023 16:17:21 letter sent: Normal Exam ACR BI-RADS Category 1: Negative 3341F
== END ==
PROVIDERS: Family Provider Student in an Organized Health Care Education/Training Program; PCP Pediatrics; Referring Provider Student in an Organized Health Care Education/Training Program; Visit Provider Student in an Organized Health Care Education/Training Program
DX: Z12.31 Encounter for screening mammogram for malignant neoplasm of breast (principal); Z80.3 Family history of malignant neoplasm of breast; R92.333 Mammographic heterogeneous density, bilateral breasts
CPT/HCPCS: 77063; 77067

== ENCOUNTER → 2023-06-25 08:10 | Outpatient (CLI) | payer MEDICARE, OTHER, SELFPAY ==
[2023-06-25 09:26] LABS: Cholesterol 261 mg/dL (140-199); Triglycerides 71 mg/dL (35-150)
[2023-06-25 09:35] LABS: HDL Cholesterol 123 mg/dL (40-60); LDL Cholesterol Calculated 124 mg/dL (<100)
== END ==
PROVIDERS: Family Provider Student in an Organized Health Care Education/Training Program; PCP Student in an Organized Health Care Education/Training Program; Referring Provider Student in an Organized Health Care Education/Training Program; Visit Provider Student in an Organized Health Care Education/Training Program
DX: Z13.220 Encounter for screening for lipoid disorders (principal); I10 Essential (primary) hypertension
CPT/HCPCS: 36415; 80061

== ENCOUNTER → 2023-11-05 08:56 | Outpatient (CLI) | payer MEDICARE, OTHER, SELFPAY ==
--- NOTE | 2023-11-05 08:57 | DI.RAD.S_ITS ---
PROCEDURE: XR HIP W PEL IF DONE LT 2V INDICATIONS: knee pain hip pain TECHNIQUE: 2 views of the hip were acquired. COMPARISON: None. FINDINGS / IMPRESSION: Cmvs-zz-wggnpvmf degenerative changes bilateral hips, sacroiliac joints and lower lumbar spine. No radiographic evidence of fracture, dislocation or high attenuation soft tissue foreign body. 7 mm x 5 mm oval-shaped calcific density projects over the right iliac wing may represent enostosis/bone island, calcified appendicoliths, soft tissue granuloma, or other calcification. If symptoms persist or worsen, or there is high clinical suspicion of acute abnormality, MRI could be performed. Dictated by: Hakeem Weiss M.D. on 11/05/2023 at 13:42 Approved by: Hakeem Weiss M.D. on 11/05/2023 at 13:46
--- NOTE | 2023-11-05 08:57 | DI.RAD.S_ITS ---
PROCEDURE: XR KNEE LT 3V INDICATIONS: knee pain TECHNIQUE: 3 views of the knee were acquired. COMPARISON: No prior x-ray left knee for comparison. [facility], CR, XR KNEE RT 3V, 03/31/2022, 12:17. FINDINGS / IMPRESSION: Sxxt-fn-ugwuikkg degenerate changes of the left knee with joint space narrowing and osteophytes in the medial, lateral and patellofemoral compartments. No radiographic evidence of fracture, dislocation or high attenuation soft tissue foreign body. If symptoms persist or worsen, or there is high clinical suspicion of acute abnormality, MRI could be performed Dictated by: Hakeem Weiss M.D. on 11/06/2023 at 8:07 Approved by: Hakeem Weiss M.D. on 11/06/2023 at 8:12
== END ==
PROVIDERS: Family Provider Student in an Organized Health Care Education/Training Program; PCP Student in an Organized Health Care Education/Training Program; Referring Provider Student in an Organized Health Care Education/Training Program; Visit Provider Student in an Organized Health Care Education/Training Program
DX: M17.10 Unilateral primary osteoarthritis, unspecified knee (principal); M25.562 Pain in left knee; M25.552 Pain in left hip
CPT/HCPCS: 73502; 73562

== ENCOUNTER → 2023-11-16 12:52 | Outpatient (CLI) | payer MEDICARE, OTHER, SELFPAY ==
--- NOTE | 2023-11-16 12:54 | DI.MRI.S_ITS ---
PROCEDURE: MR PELIS WO/W CON INDICATIONS: Lesion R pelvis seen on Xray TECHNIQUE: Noncontrast coronal T1 spin echo and STIR, sagittal T1 spin echo with fat saturation and STIR, axial T1 spin echo and T2 fast spin echo with fat saturation. Axial opposed phase 2D FLASH and diffusion-weighted imaging was also performed. After the administration of contrast, axial/sagittal/coronal T1 spin echo with fat saturation through the pelvis.. COMPARISON: [facility], CR, XR HIP W PEL IF DONE LT 2V, 11/05/2023, 8:55. FINDINGS: Image quality: Excellent. Bones: No acute trabecular bone injury or fracture. Small hypointense focus is seen in the right iliac bone without surrounding edema or enhancement, consistent with a benign bone island. This likely corresponds to the sclerotic lesion seen on radiographs from 11/05/2023. No suspicious marrow replacing mass or abnormal intraosseous enhancement. Ltlf-yp-wnarizpf degenerative changes are seen in the hips. Multilevel degenerative disc disease and facet hypertrophy in the included spine. Soft tissues: No enhancing soft tissue mass is seen in the pelvis. No significant lymphadenopathy. The visualized musculature is normal in bulk. IMPRESSION: 1. Benign bone island in the right iliac bone corresponds to the calcifications seen on prior radiographs. 2. 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 3. Multilevel degenerative changes in the spine. Approved by: Amrit Andrea M.D. on 11/17/2023 at 12:04
== END ==
LOC: MRI 12:53
PROVIDERS: Family Provider Student in an Organized Health Care Education/Training Program; PCP Student in an Organized Health Care Education/Training Program; Referring Provider Student in an Organized Health Care Education/Training Program; Visit Provider Student in an Organized Health Care Education/Training Program
DX: M16.0 Bilateral primary osteoarthritis of hip (principal); M25.552 Pain in left hip; M89.9 Disorder of bone, unspecified
CPT/HCPCS: 72197; Q9967

== ENCOUNTER → 2024-07-01 15:06 | Outpatient (CLI) | payer MEDICARE, OTHER, SELFPAY ==
--- NOTE | 2024-07-01 15:08 | DI.MG.S_ITS ---
MM screening mammo BI: 07/01/2024. BI-RADS: 1 CLINICAL: 79-year old female for bilateral screening mammogram. Tyrer-Cuzick lifetime risk of 5.2%. Current reported family history of breast cancer: mother. PRIOR EXAMS 06/17/2023, 05/09/2022, 11/09/2020, 09/20/2019, 09/01/2019, 05/08/2017, 03/28/2016. MAMMOGRAPHY TECHNIQUE: 2D and 3D (tomosynthesis) digital mammographic views obtained, with additional images as needed for full coverage. Current study was also evaluated with a Computer Aided Detection (CAD) system. DENSITY C. The breasts are heterogeneously dense, which may obscure small masses. MAMMOGRAPHY FINDINGS Bilateral: No suspicious mass, asymmetry, microcalcification, or other abnormality seen. IMPRESSION: * No evidence of malignancy. RECOMMENDATIONS Bilateral * Annual screening mammography. OVERALL ASSESSMENT CATEGORY BI-RADS-1: Negative. The [employer] recommends annual screening mammography beginning at age 40 for women with average risk of breast cancer. ELECTRONICALLY SIGNED: Veronica Sweet M.D. on 07/04/2024 at 01:39:37 AM PT Interpreting Station ID: [id number]
== END ==
PROVIDERS: PCP Student in an Organized Health Care Education/Training Program; Referring Provider Student in an Organized Health Care Education/Training Program; Visit Provider Student in an Organized Health Care Education/Training Program
DX: Z12.31 Encounter for screening mammogram for malignant neoplasm of breast (principal); R92.333 Mammographic heterogeneous density, bilateral breasts; Z80.3 Family history of malignant neoplasm of breast
CPT/HCPCS: 77063; 77067

== ENCOUNTER → 2024-08-18 07:30 | Outpatient (CLI) | payer MEDICARE, OTHER, SELFPAY ==
[2024-08-18 08:06] LABS: Add Manual Diff / Slide Review NO; Hematocrit 43.4 % (36-46); Hemoglobin 14.8 g/dL (12.0-16.0); Lymphocytes Absolute Auto 1700 /uL (1100-4500); Mean Corpuscular HGB Conc 34.2 % (30-36); Mean Corpuscular Hemoglobin 33.2 PG (26-34); Mean Corpuscular Volume 97.1 fL (80-100); Platelet Count 219 X10^3/uL (150-400)
[2024-08-18 08:23] LABS: Hemoglobin A1C% w Est Avg Glu 4.9 % (4.0-6.0)
[2024-08-18 08:30] LABS: Alanine Aminotransferase 19 IU/L (<35); Albumin 4.4 g/dL (3.5-5.0); Albumin Globulin Ratio 1.5 (1.0-2.8); Alkaline Phosphatase 88 U/L (38-126); Blood Urea Nitrogen 20 mg/dL (7-17); Calcium 9.4 mg/dL (8.4-10.2); Carbon Dioxide 27 mmol/L (22-32); Chloride 103 mmol/L (98-107); Cholesterol 296 mg/dL (140-199); Estimated Glomerular Filt Rate 52 mL/min (>60); Globulin 2.9 g/dL (1.7-4.1); Glucose 82 mg/dL (70-99); HEMOLYSIS < 15 (0-50); Potassium 4.5 mmol/L (3.4-5.1); Sodium 138 mmol/L (137-145); Total Protein 7.3 g/dL (6.3-8.2); Triglycerides 70 mg/dL (35-150)
[2024-08-18 08:46] LABS: HDL Cholesterol 144 mg/dL (40-60)
[2024-08-18 09:01] LABS: Thyroid Stimulating Hormone 2.57 uIU/mL (0.47-4.68)
== END ==
PROVIDERS: PCP Student in an Organized Health Care Education/Training Program; Referring Provider Student in an Organized Health Care Education/Training Program; Visit Provider Student in an Organized Health Care Education/Training Program
DX: Z13.1 Encounter for screening for diabetes mellitus (principal); I10 Essential (primary) hypertension; E78.00 Pure hypercholesterolemia, unspecified
CPT/HCPCS: 36415; 80053; 80061; 82043; 82570; 83036; 84443; 85025